=== PATIENT | male | born 1960 | race Caucasian/White ===

== ENCOUNTER → 2019-12-09 | Outpatient (CLI) | payer OTHER ==
[~2019-12-09] MED LIST: IBUP-1223 PO
[2019-12-09 10:24] LABS: HCT (SEDRATE) 47.9 % (39.2-51.8)
[2019-12-09 10:27] LABS: INTERNATIONAL NORMALIZED RATIO 1.03 (0.93-1.1); PROTHROMBIN TIME 10.9 Seconds (9.6-11.5)
[2019-12-09 10:28] LABS: BASOPHILS # (AUTO) 0.02 x10^3/uL (0-0.1); BASOPHILS % (AUTO) 0 % (0-1); EOSINOPHILS # (AUTO) 0.01 x10^3/uL (0-0.4); EOSINOPHILS % (AUTO) 0 % (1-7); LYMPHOCYTES # (AUTO) 1.24 x10^3/uL (1-3.4); LYMPHOCYTES % (AUTO) 19 % (22-44); MD NO; MEAN CORPUSCULAR HEMOGLOBIN 29.2 pg (27.5-34.5); MEAN CORPUSCULAR HGB CONC 32.8 g/dL (33.2-36.2); MEAN PLATELET VOLUME 7.7 fL (7.4-10.4); MONOCYTES # (AUTO) 0.44 x10^3/uL (0.2-0.8); MONOCYTES % (AUTO) 7 % (2-9); NEUTROPHILS # (AUTO) 4.76 x10^3/uL (1.8-6.8); NEUTROPHILS % (AUTO) 74 % (42-75); PLATELET COUNT 234 x10^3/uL (130-400); RED CELL DISTRIBUTION WIDTH 13.2 % (9.4-14.8)
[2019-12-09 10:43] LABS: ANION GAP 7 mmol/L (5-15); CHLORIDE 113 mmol/L (98-107); CREATININE 0.99 mg/dL (0.7-1.3)
[2019-12-09 10:52] LABS: CALCIUM 9.2 mg/dL (8.5-10.1)
== END | disposition home or self-care (01) ==
LOC: STAR 09:10
PROVIDERS: ATTEND Orthopaedic Surgery Orthopaedic Surgery of the Spine
DX: Z01.818 Encounter for other preprocedural examination (principal); M50.20 Other cervical disc displacement, unspecified cervical region; G95.9 Disease of spinal cord, unspecified
CPT/HCPCS: 36415; 71046; 80048; 83036; 85025; 85610; 85651; 85730; 87635; 93005

== ENCOUNTER 2019-12-13 07:46 | Inpatient (IN) | payer OTHER ==
[~2019-12-13] VITALS: Ht 182.9 cm; Wt 83.9 kg
[~2019-12-13 07:46] MED LIST changes: +BUPIVACAINE/PF-EPI 0.5% 1:200K ONE
[2019-12-13 08:25] VITALS: BP 126/96
[2019-12-13] MEDS ORDERED: LACTATED RINGERS 1,000 ML IV SCH (08:30)
[2019-12-13] MEDS ORDERED: ACET-1600 PO (08:31)
[2019-12-13] MEDS ORDERED: CHLORHEXIDINE 15 ML UDC ONE (08:44)
[2019-12-13] MEDS ORDERED: MIDAZOLAM 1 MG/ML, 2ML ONE (08:53)
[2019-12-13] MEDS ORDERED: PROPOFOL 100 ML ONE (08:53)
[2019-12-13] MEDS ORDERED: FENTANYL PF 250 MCG/5ML ONE ×3 (08:53→11:20)
[2019-12-13] MEDS ORDERED: ROCURONIUM 10MG/ML,5ML ONE (08:55)
[2019-12-13] MEDS ORDERED: PROPOFOL 10 MG/ML, 20ML ONE (08:55)
[2019-12-13] MEDS ORDERED: NEOSTIGMINE 1 MG/ML, 10ML ONE (08:55)
[2019-12-13] MEDS ORDERED: GLYCOPYRROLATE 0.2MG/1ML, 5ML ONE (08:55)
[2019-12-13] MEDS ORDERED: CEFAZOLIN 1,000 MG ONE (08:55)
[2019-12-13] MEDS ORDERED: VANCOMYCIN PMX 1GM/200ML 200 ML IV ONE (09:00)
[2019-12-13] MEDS ORDERED: CHLORHEXIDINE 15 ML UDC MM ONE (09:00)
[2019-12-13] MEDS ORDERED: ACETAMINOPHEN 500 MG TABLET PO ONE (09:00)
[2019-12-13] MEDS ORDERED: GABAPENTIN 300 MG CAPSULE PO ONE (09:00)
[2019-12-13] MEDS ORDERED: BACITRACIN 50,000 UNIT ONE (10:01)
[2019-12-13] MEDS ORDERED: methylPREDNISolone *ACETATE* 40 MG/ML ONE (10:01)
[2019-12-13] MEDS ORDERED: TRANEXAMIC ACID 100 MG/ML, 10ML ONE (10:01)
[2019-12-13] MEDS ORDERED: SODIUM CHLORIDE 0.9% 1,000 ML IV PRN (10:24)
[2019-12-13] MEDS ORDERED: DIAZEPAM 5 MG TABLET PO PRN (10:30)
[2019-12-13] MEDS ORDERED: KETOROLAC 30 MG/1 ML IVPush ONE (10:30)
[2019-12-13] MEDS ORDERED: LABETALOL 5MG/ML, 20ML IVPush PRN (10:30)
[2019-12-13] MEDS ORDERED: BISACODYL 10 MG SUPP PR PRN (10:30)
[2019-12-13] MEDS ORDERED: OXYcodone IR 5MG TABLET PO PRN (10:30)
[2019-12-13] MEDS ORDERED: ACETAMINOPHEN 500 MG TABLET PO PRN (10:30)
[2019-12-13] MEDS ORDERED: OXYcodone 5 MG/5 ML ORAL.SOL UDC PO PRN (10:30)
[2019-12-13] MEDS ORDERED: MEPERIDINE/PF 25MG/0.5ML IVPush PRN (10:30)
[2019-12-13] MEDS ORDERED: MAGNESIUM HYDROXIDE 8%, 30ML UDC PO PRN (10:30)
[2019-12-13] MEDS ORDERED: ONDANSETRON 2MG/ML, 2ML IV PRN (10:30)
[2019-12-13] MEDS ORDERED: ACETAMINOPHEN 650 MG SUPP PR PRN (10:30)
[2019-12-13] MEDS ORDERED: PROMETHAZINE 25 MG/ML, 1ML IM PRN (10:30)
[2019-12-13] MEDS ORDERED: LABETALOL 5MG/ML, 20ML IV PRN (10:30)
[2019-12-13] MEDS ORDERED: DEXAMETHASONE 4 MG/ML, 5ML IVPush PRN (10:30)
[2019-12-13] MEDS ORDERED: DIPHENHYDRAMINE 50 MG/ML, 1ML IM PRN (10:30)
[2019-12-13] MEDS ORDERED: FENTANYL PF 100 MCG/2ML IV PRN (10:30)
[2019-12-13] MEDS ORDERED: ONDANSETRON 2MG/ML, 2ML IVPush PRN (10:30)
[2019-12-13] MEDS ORDERED: KETOROLAC 30 MG/1 ML IVPush PRN (10:30)
[2019-12-13] MEDS ORDERED: hydrALAzine 20 MG/ML, 1ML IV PRN (10:30)
[2019-12-13] MEDS ORDERED: HYDROmorphone 1 MG/ML, 1ML INJ IVPush PRN (10:30)
[2019-12-13] MEDS ORDERED: morphine SULFATE 10 MG/ML, 1ML IVPush PRN ×2 (10:30)
[2019-12-13] MEDS ORDERED: CEFAZOLIN PMX 1GM/50ML 50 ML IVPB SCH (10:30)
[2019-12-13] MEDS ORDERED: SENNA/DOCUSATE TABLET PO PRN (10:30)
[2019-12-13] MEDS ORDERED: LORazepam 1MG TABLET PO PRN (10:30)
[2019-12-13] MEDS ORDERED: OXYcodone 5 MG/5 ML ORAL.SOL UDC ONE (12:48)
[2019-12-13] MEDS ORDERED: MEPERIDINE/PF 25MG/ML,1ML ONE (12:49)
[2019-12-13] MEDS: METHOCARBAMOL 1,000 MG in DEXTROSE 5% 100 ML IV SCH ×2 (13:00→20:47)
[2019-12-13] MEDS ORDERED: KETOROLAC 30 MG/1 ML ONE (13:00)
[2019-12-13 13:30] VITALS: BP 136/87
[2019-12-13] MEDS ORDERED: DEXAMETHASONE 4 MG/ML, 1ML ONE (14:02)
[2019-12-13] MEDS: CEFAZOLIN PMX 1GM/50ML 50 ML IVPB SCH (15:44)
[2019-12-13] MEDS: OXYcodone IR 5MG TABLET PO PRN ×2 (15:44→20:48)
[2019-12-13] MEDS: D5%-0.9% NACL+KCL 20MEQ 1,000 ML IV SCH (15:45)
[2019-12-13] MEDS: DICLOFENAC SODIUM 75 MG TABLET.DR PO SCH (16:12)
[2019-12-13 19:19] VITALS: BP 138/83
[2019-12-13] MEDS ORDERED: ZOLPIDEM 5MG TABLET PO PRN (21:00)
[2019-12-14 00:31] VITALS: BP 133/83
[2019-12-14] MEDS: OXYcodone IR 5MG TABLET PO PRN ×4 (00:53→11:30)
[2019-12-14] MEDS: CEFAZOLIN PMX 1GM/50ML 50 ML IVPB SCH (02:24)
[2019-12-14] MEDS: D5%-0.9% NACL+KCL 20MEQ 1,000 ML IV SCH (02:24)
[2019-12-14 03:52] VITALS: BP 135/80
[2019-12-14] MEDS: METHOCARBAMOL 1,000 MG in DEXTROSE 5% 100 ML IV SCH (04:42)
[2019-12-14 05:36] LABS: MEAN CORPUSCULAR HEMOGLOBIN 29.2 pg (27.5-34.5); MEAN CORPUSCULAR HGB CONC 32.3 g/dL (33.2-36.2); MEAN PLATELET VOLUME 7.9 fL (7.4-10.4); PLATELET COUNT 191 x10^3/uL (130-400); RED BLOOD COUNT 4.55 x10^6/uL (4.38-5.82); RED CELL DISTRIBUTION WIDTH 13.1 % (9.4-14.8)
[2019-12-14 06:32] LABS: MD SCAN
[2019-12-14 06:33] LABS: BASOPHILS # (AUTO) 0.01 x10^3/uL (0-0.1); BASOPHILS % (AUTO) 0 % (0-1); EOSINOPHILS % (AUTO) 0 % (1-7); LYMPHOCYTES # (AUTO) 1.01 x10^3/uL (1-3.4); LYMPHOCYTES % (AUTO) 10 % (22-44); MONOCYTES # (AUTO) 0.47 x10^3/uL (0.2-0.8); MONOCYTES % (AUTO) 5 % (2-9); NEUTROPHILS # (AUTO) 8.66 x10^3/uL (1.8-6.8); NEUTROPHILS % (AUTO) 85 % (42-75)
[2019-12-14 07:19] VITALS: BP 112/74
[2019-12-14] MEDS: DICLOFENAC SODIUM 75 MG TABLET.DR PO SCH (08:29)
[2019-12-14] MEDS ORDERED: DIAZ5TAB PO (10:36)
[2019-12-14] MEDS ORDERED: CEPH-368 PO (10:37)
[2019-12-14] MEDS ORDERED: OXYC10TA6 PO (10:38)
[2019-12-14 10:51] VITALS: BP 142/84
== END 2019-12-14 12:10 | disposition home or self-care (01) | DRG 472 ==
LOC: OUT 07:46 → ORIP 10:55 → 4NE 13:49
PROVIDERS: ADMIT Orthopaedic Surgery Orthopaedic Surgery of the Spine; ATTEND Orthopaedic Surgery Orthopaedic Surgery of the Spine
PROC: 0RB30ZZ Excision of Cervical Vertebral Disc, Open Approach (ICD-10-PCS; 2019-12-13)
PROC: 4A11X4G Monitoring of Peripheral Nervous Electrical Activity, Intraoperative, External Approach (ICD-10-PCS; 2019-12-13)
PROC: 0RG10A0 Fusion of Cervical Vertebral Joint with Interbody Fusion Device, Anterior Approach, Anterior Column, Open Approach (ICD-10-PCS; principal; 2019-12-13 10:00)
DX: M48.02 Spinal stenosis, cervical region (principal); M50.022 Cervical disc disorder at C5-C6 level with myelopathy; M50.122 Cervical disc disorder at C5-C6 level with radiculopathy; Z20.828 Contact with and (suspected) exposure to other viral communicable diseases
CPT/HCPCS: 36415; 72040; 85025; 87635; C1713; G0378; J0690; J1100; J1885; J2175; J2250; J2704; J2710; J3010; J3370; C1760; C1762; C1763; C1889; J1030; J2270; J2800; J3480; J7120